=== PATIENT | male | born 1945 | race Caucasian/White ===

== ENCOUNTER 2017-10-11 05:35 | Emergency (ER) | payer MEDICARE ==
[~2017-10-11] VITALS: Ht 188 cm; Wt 101.7 kg
[~2017-10-11 05:35] MED LIST: ASPI-1071 PO; ATOR20TA66 PO; BUSP10TA10 PO; CALC-216 PO; FLO0.4C PO; FLUO20CA39 PO; GABA800T2 PO; LISI-600 PO; LUTE20CA PO; METO25TA6 PO; MULT-570 PO; OMEG-156 PO; OXYC20TA40 PO; TIZA4CAP PO; TURM500C3 PO; VITA150T PO; [UNRECOGNIZED DRUG - OTHER]
[2017-10-11] MEDS ORDERED: HYDROcodone/acetaminophen 10/325mg tab PO ONE (06:40)
[2017-10-11] MEDS ORDERED: LIDOcaine 1.5% w/epinephrine 1:200,000 5ml ampul IJ ONE (06:50)
[2017-10-11] MEDS ORDERED: cyclobenzaprine 10mg tablet PO ONE (06:50)
[2017-10-11 08:06] VITALS: BP 171/89
[2017-10-11] MEDS ORDERED: CEPH250T PO (08:07)
== END 2017-10-11 08:15 | disposition home or self-care (01) ==
LOC: ER 05:35
DX: S01.81XA Laceration without foreign body of other part of head, initial encounter (principal); I10 Essential (primary) hypertension; G89.29 Other chronic pain; Z88.8 Allergy status to other drugs, medicaments and biological substances; Z79.82 Long term (current) use of aspirin; Z98.890 Other specified postprocedural states; W06.XXXA Fall from bed, initial encounter; Y93.84 Activity, sleeping; Y92.89 Other specified places as the place of occurrence of the external cause; Y99.8 Other external cause status
CPT/HCPCS: 12013; 99283; J3490

== ENCOUNTER 2021-10-30 09:05 | Outpatient (CLI) | payer MEDICARE ==
[~2021-10-30 09:05] MED LIST changes: +GABA800T11 PO; -GABA800T2 PO; -LISI-600 PO; +LISI20TA28 PO; +LOP25T PO; -METO25TA6 PO
== END 2021-10-30 23:59 | disposition home or self-care (01) ==
LOC: RAD 09:05
PROVIDERS: ATTEND Psychiatry & Neurology Neurology
DX: G25.3 Myoclonus (principal)
CPT/HCPCS: 95816